=== PATIENT | female | born 1975 | race Caucasian/White ===

== ENCOUNTER 2016-05-25 23:51 | Emergency (ER) | payer OTHER ==
[~2016-05-25 23:51] MED LIST: FOLIC ACID0.8 M2 PO; IBUPROFEN800 M1 PO; KEFLEX500 M4 PO; LEVOTHYROXINE150 MC3 PO; LOVENOX40 MG/0.1 SC; MILK OF MAGNESIA PO; MOTRIN800 MG PO; PANTOPRAZOLE SO20 M1 PO; PANTOPRAZOLE SO40 M3 PO; PRENATAL VITAM1 EA11 PO; SENOKOT-S TABL1 EACH PO; SURFAK240 M1 PO; TYLENOL #31 TA1 PO; VITAMIN D35000 UNI3 PO
[2016-05-26 02:08] LABS: BASO % 0.2 % (0-2); EOS % 3.3 % (0-7); EOSINOPHIL ABSOLUTE COUNT 0.4 tho/cmm (0.0-0.7); HCT-HEMATOCRIT 36.9 % (34.0-49.0); HGB-HEMOGLOBIN 12.4 gm/dl (12.0-15.5); IMMATURE GRANULOCYTES ABSOLUTE 0.02 tho/cmm (0-0.03); IMMATURE GRANULOCYTES PERCENT 0.2 % (0-0.3); LYMPH % 26.1 % (20-45); LYMPH ABSOLUTE COUNT 2.8 tho/cmm (0.8-4.5); MCH (MEAN CORPUSCULAR HGB) 30.4 pg (28.0-32.0); MCHC MEAN CORPUSCULAR HGB CONC 33.6 % (32.0-36.0); MCV (MEAN CELL VOLUME) 90.4 fl (82.0-96.0); MEAN PLATELET VOLUME 10.8 cmc (9.4-12.4); MONO % 5.6 % (0-12); MONOCYTE ABSOLUTE COUNT 0.6 tho/cmm (0.0-1.2); NEUTROPHIL ABSOLUTE COUNT 6.9 tho/cmm (1.6-8.0); NEUTROPHIL-AUTOMATED 6.9 tho/cmm (1.6-8.0); NEUTROPHILS % 64.6 % (40-80); PLATELET COUNT 306 tho/cmm (150-450); RED BLOOD COUNT 4.08 mil/cmm (4.00-5.20); WHITE BLOOD COUNT 10.7 tho/cmm (4.0-10.0)
[2016-05-26 02:34] LABS: ALB/GLOB RATIO 0.8 (0.8-2.0); ALBUMIN 3.3 g/dl (3.5-5.0); ALKALINE PHOSPHATASE 101 U/L (33-138); ALT/SGPT 21 U/L (12-78); ANION GAP 11 mmol/L (0-20); AST/SGOT 15 U/L (10-40); BILIRUBIN,TOTAL 0.2 mg/dl (0-1.5); BLOOD UREA NITROGEN 14 mg/dl (6-24); CARBON DIOXIDE-VENOUS 24 mmol/L (22-32); CHLORIDE 111 mmol/l (96-110); CREATININE 0.69 mg/dl (0.50-1.10); GLUCOSE 113 mg/dL (70-110); POTASSIUM 3.9 mmol/L (3.7-5.1); SODIUM 142 mmol/L (135-145); eGFR VALUE FOR BLACK >90 mL/Min
[2016-05-26 02:58] LABS: URINE BILIRUBIN NEGATIVE (NEG); URINE BLOOD NEGATIVE (NEG); URINE GLUCOSE (UA) NEGATIVE (NEG); URINE KETONE NEGATIVE (NEG); URINE LEUKOCYTE ESTERASE NEGATIVE (NEG); URINE NITRITE NEGATIVE (NEG); URINE PROTEIN NEGATIVE (NEG)
[2016-05-26 03:10] LABS: URINE APPEARANCE CLEAR; URINE COLOR YELLOW
[2016-05-26 03:19] LABS: URINE EPITHELIAL CELLS 0-3 /[HPF] (0-10); URINE RBC 0 /[HPF] (0-5); URINE WBC 0-2 /[HPF] (0-5)
[2016-05-26 03:20] LABS: URINE BACTERIA 2+
== END 2016-05-26 02:50 ==
LOC: EDMED 23:51
PROVIDERS: Emergency Medicine Emergency Medical Services
DX: K42.9 Umbilical hernia without obstruction or gangrene (principal)